=== PATIENT | male | born 1955 | race Caucasian/White ===

== ENCOUNTER 2017-09-01 13:23 | Day surgery (SDC) | payer OTHER ==
[~2017-09-01] VITALS: Ht 170.2 cm; Wt 91.4 kg
[2017-09-01 14:35] VITALS: BP 153/91; PULSE 75; TEMP 98.3
[2017-09-01] MEDS ORDERED: ADALAT CC60 MG PO (14:51)
[2017-09-01] MEDS ORDERED: NEXIUM 40MG40 MG PO (14:51)
[2017-09-01] MEDS ORDERED: OMEGA-31 SGL PO (14:52)
[2017-09-01] MEDS ORDERED: PRINIVIL40 MG PO (14:53)
[2017-09-01] MEDS ORDERED: LIPITOR 40MG TA40 MG PO (14:53)
[2017-09-01] MEDS ORDERED: HYGROTON 2525 MG/TAB PO (14:54)
[2017-09-01] MEDS ORDERED: ATROVENT NASAL15 ML NS (14:55)
[2017-09-01] MEDS ORDERED: ZYRTEC 10MG10 MG PO (14:56)
[2017-09-01] MEDS ORDERED: VITAMIN D 400400 IU PO (14:56)
[2017-09-01] MEDS ORDERED: TYLENOL 325MG325 MG PO (14:57)
[2017-09-01] MEDS ORDERED: [UNRECOGNIZED DRUG - OTHER] DT (14:58)
[2017-09-01] MEDS ORDERED: MUCINEX 60600 MG/TA1 PO (14:59)
[2017-09-01] MEDS ORDERED: COZAAR100 MG PO (15:04)
[2017-09-01] MEDS ORDERED: JANUVIA 100MG100 MG PO (15:04)
[2017-09-01 15:50] VITALS: BP 143/85; PULSE 72; TEMP 97.6
[2017-09-01 16:05] VITALS: BP 141/86; PULSE 67
[2017-09-01 16:20] VITALS: BP 125/80; PULSE 64
== END 2017-09-01 16:35 | disposition home or self-care (01) ==
LOC: SDCO 13:23
DX: D12.8 Benign neoplasm of rectum (principal); K92.1 Melena; K57.30 Diverticulosis of large intestine without perforation or abscess without bleeding; K64.2 Third degree hemorrhoids; E11.9 Type 2 diabetes mellitus without complications; E78.00 Pure hypercholesterolemia, unspecified; I10 Essential (primary) hypertension; F17.210 Nicotine dependence, cigarettes, uncomplicated; Z79.82 Long term (current) use of aspirin; Z79.84 Long term (current) use of oral hypoglycemic drugs
CPT/HCPCS: J2250; J3010; J7030

== ENCOUNTER → 2021-02-02 | Outpatient (CLI) | payer MEDICARE, OTHER ==
[~2021-02-02] MED LIST: ADALAT CC60 MG PO; ATROVENT NASAL15 ML NS; COZAAR100 MG PO; HYGROTON 2525 MG/TAB PO; JANUVIA 100MG100 MG PO; LIPITOR 40MG TA40 MG PO; MUCINEX 60600 MG/TA1 PO; NEXIUM 40MG40 MG PO; OMEGA-31 SGL PO; PRINIVIL40 MG PO; TYLENOL 325MG325 MG PO; VITAMIN D 400400 IU PO; ZYRTEC 10MG10 MG PO; [UNRECOGNIZED DRUG - OTHER] DT
== END ==
LOC: COL.RAD 12:05
DX: M19.011 Primary osteoarthritis, right shoulder (principal)